=== PATIENT | male | born 2000 | race Two or more races ===

== ENCOUNTER 2019-04-17 00:30 | Emergency (ER) | payer OTHER ==
[2019-04-17] MEDS ORDERED: ONDANSETRON HCL INJ/PF 4 MG/2 ML SDV IM ONE (01:41)
[2019-04-17 04:00] LABS: ABSOLUTE EOSINOPHILS # (AUTO) 0.6 10^3/uL (0.0-0.6); ABSOLUTE LYMPHOCYTES (AUTO) 1.6 10^3/uL (0.5-4.7); ABSOLUTE MONOCYTES (AUTO) 0.6 10^3/uL (0.1-1.4); ABSOLUTE NEUT (AUTO) 7.5 10^3/uL (1.7-8.2); BASOPHILS % (AUTO) 0.2 % (0-2); HEMATOCRIT 52.9 % (37.9-51.0); HEMOGLOBIN 18.2 g/dL (13.5-17.0); LYMPHOCYTES % (AUTO) 15.7 % (13-45); MEAN CORPUSCULAR HEMOGLOBIN 28.9 pg (27.0-33.4); MEAN CORPUSCULAR HGB CONC 34.3 g/dL (32.0-36.0); MEAN CORPUSCULAR VOLUME 84 fl (80-97); MONOCYTES % (AUTO) 6.1 % (3-13); PLATELET COUNT 248 10^3/uL (150-450); RED BLOOD COUNT 6.28 10^6/uL (4.35-5.55); RED CELL DISTRIBUTION WIDTH 13.2 % (11.5-14.0); TOTAL CELLS COUNTED % (AUTO) 100 %; WHITE BLOOD COUNT 10.4 10^3/uL (4.0-10.5)
[2019-04-17 04:29] LABS: ALANINE AMINOTRANSFERASE 54 U/L (21-72); ALBUMIN 4.9 g/dL (3.5-5.0); ALKALINE PHOSPHATASE 86 U/L (38-126); ANION GAP 13 (5-19); ASPARTATE AMINO TRANSFERASE 33 U/L (17-59); BILIRUBIN,DIRECT 0.3 mg/dL (0.0-0.4); BILIRUBIN,TOTAL 1.2 mg/dL (0.2-1.3); BLOOD UREA NITROGEN 8 mg/dL (7-20); CALCIUM 10.6 mg/dL (8.4-10.2); CARBON DIOXIDE 28 mmol/L (22-30); CHLORIDE 98 mmol/L (98-107); GLUCOSE 94 mg/dL (75-110); POTASSIUM 3.7 mmol/L (3.6-5.0); TOTAL PROTEIN 7.7 g/dL (6.3-8.2)
[2019-04-17] MEDS ORDERED: ONDANSETRON HCL INJ/PF 4 MG/2 ML SDV IV ONE (04:37)
[2019-04-17] MEDS ORDERED: RINGERS SOLUTION,LACTATED 1,000 ML IV ONE ×2 (04:37→05:54)
[2019-04-17] MEDS ORDERED: MAGNESIUM SULFATE/D5W 1 GM/100 ML RTUPB IV ONE (04:42)
--- NOTE | 2019-04-17 04:55 | ER Document Report ---
ED General - General Chief Complaint: Nausea/Vomiting/Diarrhea Stated Complaint: FLU Time Seen by Provider: 04/17/19 04:36 Notes: Patient is a 18-year-old male that presents to the emergency department for chief complaint of nausea, vomiting diarrhea. Patient reports that he started having nausea, vomiting diarrhea yesterday, with some mild abdominal cramping is mainly lower. He had several episodes of nonbilious, nonbloody vomit, nonbloody diarrhea. He states is mainly watery. Denies any sick contacts that he is aware of, and is not aware of consumption of any undercooked or raw foods. He currently rates his pain as a 2 out of 10 describes as an aching sensation mainly in his lower abdomen, worse in the left compared to the right. Denies any dysuria, hematuria or flank pain. Past Medical History: Denies chronic medical conditions Past Surgical History: Denies surgical history Social History: Denies tobacco, alcohol or illicit drug use. Family History: Reviewed and noncontributory for presenting illness Allergies: Reviewed, see documented allergy list. REVIEW OF SYSTEMS: Other than noted above, the 12 point review of systems was reviewed with the patient and were negative, all pertinent findings are included in the HPI. PHYSICAL EXAMINATION: Vital signs reviewed, nursing noted reviewed. GENERAL: Well-appearing, well-nourished and in no acute distress. HEAD: Atraumatic, normocephalic. EYES: Eyes appear normal, extraocular movements intact, sclera anicteric, conjunctiva are normal. ENT: nares patent, oropharynx clear without exudates. Moist mucous membranes. NECK: Normal range of motion, supple without lymphadenopathy LUNGS: Breath sounds clear to auscultation bilaterally and equal. No wheezes rales or rhonchi. HEART: Regular rate and rhythm without murmurs ABDOMEN: Soft, mild lower abdominal tenderness to palpation, left greater than right, negative McBurney's point tenderness, negative psoas and obturator sign., normoactive bowel sounds. No rebound, guarding, or rigidity. No masses appr eciated. EXTREMITIES: Nontender, good range of motion, no pitting or edema. NEUROLOGICAL: No focal neurological deficits. Moves all extremities spontaneously Motor and sensory grossly intact on exam. PSYCH: Normal mood, normal affect. SKIN: Warm, Dry, normal turgor, no rashes or lesions noted on exposed skin - Related Data Allergies/Adverse Reactions: No Known Allergies Allergy (Unverified 04/17/19 00:40) Past Medical History - Social History Smoking Status: Never Smoker Frequency of alcohol use: None Drug Abuse: None Family History: Reviewed & Not Pertinent Patient has suicidal ideation: No Patient has homicidal ideation: No Renal/ Medical History: Denies: Hx Peritoneal Dialysis Physical Exam - Vital signs Vitals: Temp Pulse Resp BP Pulse Ox 99.2 F 80 17 127/80 H 98 04/17/19 00:36 04/17/19 00:36 04/17/19 00:36 04/17/19 00:36 04/17/19 00:36 Course - Re-evaluation Re-evalutation: Patient seen and examined vital signs reviewed. Laboratory data and/or imaging were ordered as appropriate for the patient's presenting symptoms and complaint, with consideration of any critical or life threatening conditions that may be associated with their obtained history and exam as noted above. Patient was treated with IV fluids, Zofran and Toradol Results were reviewed when available and demonstrated hemoconcentration, elevated hemoglobin, magnesium was 1.5, somewhat low, given magnesium replacement to the IV, 1 g, he also noted to have ketones in his urine, without evidence of infection, but consistent with dehydration. The patient was re-evaluated and was stable and improved, symptoms were resolved Evaluation was most consistent with nausea, vomiting diarrhea, likely viral gastroenteritis, advised taking p.o. Zofran if needed, and to drink plenty of fluids to maintain hydration at home. Results were discussed with the patient at this point, after careful consideration I feel that that patient can be discharged from the emergency department, the patient was educated treatments and reasons to return to the emergency department based on their presumed diagnosis as noted above, they were advised to followup with a primary care physician in 2-3 days. Patient was agreeable to plan of care. *Note is created using voice recognition software and may contain spelling, syntax or grammatical errors. Laboratory 04/17/19 04/17/19 04/17/19 03:50 03:50 04:38 WBC 10.4 RBC 6.28 H Hgb 18.2 H Hct 52.9 H MCV 84 MCH 28.9 MCHC 34.3 RDW 13.2 Plt Count 248 Seg Neutrophils % 72.0 Lymphocytes % 15.7 Monocytes % 6.1 Eosinophils % 6.0 Basophils % 0.2 Absolute Neutrophils 7.5 Absolute Lymphocytes 1.6 Absolute Monocytes 0.6 Absolute Eosinophils 0.6 Absolute Basophils 0.0 Sodium 139.4 Potassium 3.7 Chloride 98 Carbon Dioxide 28 Anion Gap 13 BUN 8 Creatinine 0.72 Est GFR ( Amer) > 60 Est GFR (Non-Af Amer) > 60 Glucose 94 Calcium 10.6 H Magnesium 1.5 L Total Bilirubin 1.2 Direct Bilirubin 0.3 Neonat Total Bilirubin Not Reportable Neonat Direct Bilirubin Not Reportable Neonat Indirect Bili Not Reportable AST 33 ALT 54 Alkaline Phosphatase 86 Total Protein 7.7 Albumin 4.9 Lipase 28.5 Urine Color DASHA Urine Appearance SLIGHTLY-CLOUDY Urine pH 5.0 Ur Specific Spur 1.028 Urine Protein 30 H Urine Glucose (UA) NEGATIVE Urine Ketones 80 H Urine Blood NEGATIVE Urine Nitrite NEGATIVE Urine Bilirubin NEGATIVE Urine Urobilinogen NEGATIVE Ur Leukocyte Esterase NEGATIVE Urine WBC (Auto) 1 Urine RBC (Auto) 2 Squamous Epi Cells Auto 1 Calcium Oxalate Cr Auto MODERATE Urine Mucus (Auto) MANY Urine Ascorbic Acid 40 H - Vital Signs Vital signs: Temp Pulse Resp BP Pulse Ox 99.0 F 80 17 127/80 H 98 04/17/19 04:50 04/17/19 00:36 04/17/19 00:36 04/17/19 00:36 04/17/19 00:36 - Laboratory Result Diagrams: 04/17/19 03:50 04/17/19 03:50 Laboratory results interpreted by me: 04/17/19 04/17/19 04/17/19 03:50 03:50 04:38 RBC 6.28 H Hgb 18.2 H Hct 52.9 H Calcium 10.6 H Magnesium 1.5 L Urine Protein 30 H Urine Ketones 80 H Urine Ascorbic Acid 40 H Discharge - Discharge Clinical Impression: Nausea vomiting and diarrhea Condition: Stable Disposition: HOME, SELF-CARE Instructions: Vomiting ([facility]), Diarrhea, Nonspecific ([facility]) Additional Instructions: Please take the dispense Zofran, every 6 hours if needed for nausea and vomiting, please follow-up with the primary care, one has been listed with your paperwork. Drink plenty of fluids, and eat a bland diet, with breads, broth, and water for the next 24 to 48 hours, to avoid stimulating any further vomiting . Referrals: [facility] [Provider Group] - Follow up in 3-5 days (primary care. )
[2019-04-17 05:16] LABS: APPEARANCE,URINE SLIGHTLY-CLOUDY; BILIRUBIN,URINE NEGATIVE (NEGATIVE); CALCIUM OXALATE CRYSTALS,URINE MODERATE /HPF; COLOR,URINE AMBER; GLUCOSE, URINE NEGATIVE (NEGATIVE); KETONES,URINE 80 mg/dL (NEGATIVE); LEUKOCYTE ESTERASE,URINE NEGATIVE (NEGATIVE); NITRITE,URINE NEGATIVE (NEGATIVE); PROTEIN,URINE 30 mg/dL (NEGATIVE); URINE SPECIFIC GRAVITY 1.028; UROBILINOGEN,URINE NEGATIVE mg/dL (<2.0)
[2019-04-17] MEDS ORDERED: KETOROLAC TROMETHAMINE INJ/PF 30 MG/1 ML SDV IV ONE (05:35)
[2019-04-17] MEDS ORDERED: ONDANSETRON ODT 4 MG TAB (6 TAB/ER DISP) PO PRN (05:57)
[2019-04-17 07:13] VITALS: BP 100/59
== END 2019-04-17 07:13 | disposition home or self-care (01) ==
LOC: ER 00:30
DX: R11.2 Nausea with vomiting, unspecified (principal); R19.7 Diarrhea, unspecified; R10.30 Lower abdominal pain, unspecified
CPT/HCPCS: 99284; 96361; 96375; 96365; 36415; 83690; 83735; 85025; 80053; 81001; J1885; J3475; J2405; J7120